=== PATIENT | female | born 1955 ===

== ENCOUNTER 2017-07-03 13:59 | Emergency (ER) | payer OTHER ==
[2017-07-03 14:00] VITALS: BMI 29.0
[2017-07-03 14:19] VITALS: RESP 20
[2017-07-03 15:35] VITALS: BP 130/64; PULSE 82; TEMP 98.6; O2SAT 98
--- NOTE | 2017-07-03 17:00 | C.PDOC ---
History Of Present Illness The patient is a 62yo female, presents to the ED for evaluation of sinus congestion and rash for the past 8 days. Patient reports rash was vesicular but has now dried. Patient denies any fever, vomiting. Patient states she has not visited her PCP for her symptoms. She offers no other medical complaints. Time Seen by Provider: 07/03/17 14:20 Chief Complaint (Nursing): Cough, Cold, Congestion History Per: Patient History/Exam Limitations: no limitations Onset/Duration Of Symptoms: Days Current Symptoms Are (Timing): Still Present Past Medical History Reviewed: Historical Data, Nursing Documentation, Vital Signs Vital Signs: Last Vital Signs Temp 98.6 F 07/03/17 15:34 Pulse 82 07/03/17 15:34 Resp 20 07/03/17 15:34 BP 130/64 07/03/17 15:34 Pulse Ox 98 07/03/17 17:04 - Medical History PMH: Arthritis (LEGS), Colonic Polyps (ADENOMATOUS AND HYPERPLASTIC), HTN, Hyperlipidemia Denies: Fractures, Chronic Kidney Disease, TIA Surgical History: Denies: Endoscopy Family History: States: Unknown Family Hx, Hypertension - Social History Hx Tobacco Use: No Hx Alcohol Use: No Hx Substance Use: No - Immunization History Hx Tetanus Toxoid Vaccination: No Hx Influenza Vaccination: No Hx Pneumococcal Vaccination: No Review Of Systems Constitutional: Negative for: Fever, Chills ENT: Positive for: Nose Congestion Gastrointestinal: Negative for: Nausea, Vomiting Skin: Positive for: Rash Physical Exam - Physical Exam Appears: Non-toxic, No Acute Distress Skin: Rash (dry, sporadic papules noted on T7 dermatome.) Eye(s): bilateral: Normal Inspection Nose: Other (mild sinus tenderness noted) Neck: Normal ROM Cardiovascular: Rhythm Regular Respiratory: Normal Breath Sounds, No Wheezing ED Course And Treatment O2 Sat by Pulse Oximetry: 98 (RA) Pulse Ox Interpretation: Normal Medical Decision Making Medical Decision Making: Impression: 62yo female w/ rash and sinus congestion Plan: -- Motrin 600 mg PO Patient to be discharged home w/ Zithromax and Motrin. Disposition - Disposition Referrals: [facility] [Outside] [facility] [Outside] Disposition: HOME/ ROUTINE Disposition Time: 15:10 Condition: GOOD Additional Instructions: Thank you for letting us take care of you today. Your provider was Dr. Mccartney. You were treated for a sinus infection and shingles. The emergency medical care you received today was directed at your acute symptoms. If you were prescribed any medication, please fill it and take as directed. It may take several days for your symptoms to resolve. Return to the Emergency Department if your symptoms worsen, do not improve, or if you have any other problems. Please contact your doctor or call one of the physicians/clinics you have been referred to that are listed on the Patient Visit Information form that is included in your discharge packet. Bring any paperwork you were given at discharge with you along with any medications you are taking to your follow up visit. Our treatment cannot replace ongoing medical care by a primary care provider (PCP) outside of the emergency department. Thank you for allowing the [facility] team to be part of your care today. Follow up in the clinic in 2-3 days for re-evaluation and further management. Prescriptions: Azithromycin [Zithromax] 250 mg PO DAILY #6 tab Ibuprofen [Motrin] 600 mg PO Q6 PRN #20 tab PRN Reason: Pain, Moderate (4-7) Instructions: Shingles (ED), Upper Respiratory Infection (ED) - Clinical Impression Clinical Impression: Viral disease, Shingles - Scribe Statement The provider has reviewed the documentation as recorded by the Ritaibsorin Manrique All medical record entries made by the Anthony were at my direction and personally dictated by me. I have reviewed the chart and agree that the record accurately reflects my personal performance of the history, physical exam, medical decision making, and the department course for this patient. I have also personally directed, reviewed, and agree with the discharge instructions and disposition.
== END 2017-07-03 15:35 | disposition home or self-care (01) ==
LOC: C.ER 13:59
DX: B34.9 Viral infection, unspecified (principal); B02.9 Zoster without complications

== ENCOUNTER 2017-08-30 12:59 | Emergency (ER) | payer OTHER ==
[2017-08-30 13:00] VITALS: BMI 29.0
[2017-08-30 13:22] VITALS: RESP 20; TEMP 98.5; O2SAT 97
[2017-08-30] MEDS ORDERED: Aspirin 325 mg EC Tablets PO STA (13:33)
--- NOTE | 2017-08-30 13:36 | C.PDOC ---
History Of Present Illness 62 y/o female presents to ED with c/o mid-sternal chest pain for 2 days. Patient describes pain as constant, not changing with exertion or change of position. Denies cough, SOB, diaphoresis, nausea, vomiting, or other associated symptoms. Patient reports chronic nasal congestion with a history of post nasal drip, which she states is unchanged. Time Seen by Provider: 08/30/17 13:28 Chief Complaint (Nursing): Chest Pain History Per: Patient History/Exam Limitations: no limitations Onset/Duration Of Symptoms: Days Current Symptoms Are (Timing): Still Present Associated Symptoms: denies: Dyspnea, Diaphoresis Recent travel outside of the [place]: No Past Medical History Reviewed: Historical Data, Nursing Documentation, Vital Signs Vital Signs: Last Vital Signs Temp 98.5 F 08/30/17 13:19 Pulse 60 08/30/17 13:19 Resp 20 08/30/17 13:19 BP 139/72 08/30/17 13:19 Pulse Ox 97 08/30/17 14:30 - Medical History PMH: Arthritis (LEGS), Bronchitis, Colonic Polyps (ADENOMATOUS AND HYPERPLASTIC) , HTN, Hyperlipidemia Family History: States: Unknown Family Hx, Hypertension - Social History Hx Tobacco Use: No Hx Alcohol Use: No Hx Substance Use: No - Immunization History Hx Tetanus Toxoid Vaccination: No Hx Influenza Vaccination: No Hx Pneumococcal Vaccination: No Review Of Systems Except As Marked, All Systems Reviewed And Found Negative. Constitutional: Negative for: Fever, Chills Cardiovascular: Positive for: Chest Pain. Negative for: Palpitations Respiratory: Negative for: Cough, Shortness of Breath, Wheezing Gastrointestinal: Negative for: Nausea, Vomiting, Abdominal Pain Skin: Negative for: Rash Physical Exam - Physical Exam Appears: Non-toxic, No Acute Distress, Other (comfortable) Skin: Normal Color, Warm, Dry Head: Atraumatic, Normacephalic Oral Mucosa: Moist Chest: Symmetrical Cardiovascular: Rhythm Regular Respiratory: Normal Breath Sounds, No Accessory Muscle Use, No Rales, No Rhonchi , No Wheezing Gastrointestinal/Abdominal: Soft, No Tenderness Back: Normal Inspection Extremity: Normal ROM, Capillary Refill (< 2 sec.) Neurological/Psych: Oriented x3, Normal Speech, Normal Cognition ED Course And Treatment - Laboratory Results Result Diagrams: 08/30/17 13:43 08/30/17 13:43 Lab Interpretation: Normal ECG: Interpreted By Me ( ) ECG Rhythm: Sinus Rhythm ECG Interpretation: No Acute Changes O2 Sat by Pulse Oximetry: 97 (RA) Pulse Ox Interpretation: Normal - Radiology CXR: Interpreted by Me CXR Interpretation: Yes: No Acute Disease Progress Note: EKG, bloodwork, aspirin. Reevaluation Time: 15:15 Reassessment Condition: Improved (Patient states that she feels better but is still having nasal congestion.) Disposition Counseled Patient/Family Regarding: Studies Performed, Diagnosis, Need For Followup, Rx Given - Disposition Referrals: [facility] [Outside] Disposition: HOME/ ROUTINE Disposition Time: 15:16 Condition: STABLE Prescriptions: Fluticasone Nasal [Flonase] 1 spr NS BID #1 spr Instructions: Noncardiac Chest Pain (ED) Forms: [employer] (Ugandan) - Clinical Impression Clinical Impression: Non-cardiac chest pain, Nasal congestion - Scribe Statement The provider has reviewed the documentation as recorded by the Scribe SM All medical record entries made by the Scribe were at my direction and personally dictated by me. I have reviewed the chart and agree that the record accurately reflects my personal performance of the history, physical exam, medical decision making, and the department course for this patient. I have also personally directed, reviewed, and agree with the discharge instructions and disposition.
[2017-08-30 13:48] LABS: BASO # 0.1 K/uL (0.0-0.2); BASO % 0.9 % (0.0-2.0); EOS # 0.1 K/uL (0.0-0.7); EOS % 0.8 % (0.0-4.0); HEMATOCRIT 40.6 % (34.0-47.0); LYMPH # 2.2 K/uL (1.0-4.3); LYMPH % 30.1 % (20.0-40.0); MEAN CELL VOLUME 88.4 fL (81.0-99.0); MEAN CORPUSCULAR HEMOGLOBIN 30.4 pg (27.0-31.0); MEAN CORPUSCULAR HGB CONC 34.4 g/dL (33.0-37.0); MEAN PLATELET VOLUME 8.6 fL (7.2-11.7); MONO # 0.6 K/uL (0.0-0.8); MONO % 7.9 % (0.0-10.0); RED CELL DISTRIBUTION WIDTH 13.2 % (11.5-14.5); WHITE BLOOD COUNT 7.3 K/uL (4.8-10.8)
[2017-08-30 14:21] LABS: ALB/GLOB RATIO 1.4 (1.0-2.1); ALKALINE PHOSPHATASE 101 U/L (38-126); ALT/SGPT 54 U/L (9-52); AST/SGOT 35 U/L (14-36); BILIRUBIN,TOTAL 0.5 mg/dL (0.2-1.3); BLOOD UREA NITROGEN 19 mg/dL (7-17); CALCIUM 8.7 mg/dl (8.6-10.4); CARBON DIOXIDE 28 mmol/L (22-30); CHLORIDE 104 mmol/L (98-107); GFR AFRICAN-AMERICAN > 60; GLUCOSE,RANDOM 123 mg/dL (65-105); POTASSIUM 3.6 mmol/L (3.6-5.2); SODIUM 140 mmol/L (132-148); TOTAL PROTEIN 7.2 g/dL (6.3-8.3)
[2017-08-30 15:15] VITALS: BP 155/85; PULSE 54
--- NOTE | 2017-08-30 15:46 | RAD ---
HISTORY: chest pain COMPARISON: Chest radiographs 01/31/2017. TECHNIQUE: Chest PA and lateral FINDINGS: LUNGS: No active pulmonary disease. PLEURA: No significant pleural effusion identified. No pneumothorax apparent. CARDIOVASCULAR: Normal. OSSEOUS STRUCTURES: No significant abnormalities. VISUALIZED UPPER ABDOMEN: Normal. OTHER FINDINGS: None. IMPRESSION: No interval acute cardiopulmonary disease appreciated.
== END 2017-08-30 15:22 | disposition home or self-care (01) ==
LOC: C.ER 12:59
DX: R07.89 Other chest pain (principal); R09.81 Nasal congestion

== ENCOUNTER 2017-09-13 16:40 | Emergency (ER) | payer OTHER ==
[2017-09-13 16:41] VITALS: BMI 29.0
[2017-09-13 17:27] VITALS: TEMP 98.8; O2SAT 97
--- NOTE | 2017-09-13 18:27 | C.PDOC ---
History Of Present Illness 62 year old female presents to the ED with c/o insomnia for 3 days. Patient has no other associated symptoms at this time. She is pending PMD appointment on . History obtained via senior consumer insights consultant. VIA TRANS CO INSOMNIA X 3 DAYS. NO OTHER ASSOC SX. PENDING PMD APPT 10/10. EXAM NEG MDM PT ADVISED THIS PROVIDER DOES NOT WRITE PRESCRIPTIONS FOR INSOMNIA. FU PMD SCHEDULED. Chief Complaint (Nursing): Medical Clearance History Per: Patient History/Exam Limitations: other (senior consumer insights consultant used ) Onset/Duration Of Symptoms: Days Current Symptoms Are (Timing): Still Present Additional History Per: Patient Past Medical History Reviewed: Historical Data, Nursing Documentation, Vital Signs Vital Signs: Last Vital Signs Temp 98.8 F 09/13/17 17:24 Pulse 70 09/13/17 18:33 Resp 16 09/13/17 18:33 BP 139/84 09/13/17 18:33 Pulse Ox 97 09/13/17 18:27 - Medical History PMH: Arthritis (LEGS), Bronchitis, Colonic Polyps (ADENOMATOUS AND HYPERPLASTIC) , HTN, Hyperlipidemia Surgical History: No Surg Hx Family History: States: Hypertension - Social History Hx Tobacco Use: No Hx Alcohol Use: No Hx Substance Use: No - Immunization History Hx Tetanus Toxoid Vaccination: No Hx Influenza Vaccination: No Hx Pneumococcal Vaccination: No Review Of Systems Constitutional: Positive for: Other (insomnia ) Physical Exam - Physical Exam Appears: Non-toxic, No Acute Distress Skin: Normal Color, Warm, Dry Neurological/Psych: Oriented x3, Normal Speech, Normal Cognition Gait: Steady ED Course And Treatment O2 Sat by Pulse Oximetry: 97 (on RA) Pulse Ox Interpretation: Normal Medical Decision Making Medical Decision Making: PT ADVISED THIS PROVIDER DOES NOT WRITE PRESCRIPTIONS FOR INSOMNIA. FU PMD SCHEDULED. Disposition Counseled Patient/Family Regarding: Diagnosis, Need For Followup - Disposition Referrals: YOUR,PMD [Other] Disposition: HOME/ ROUTINE Disposition Time: 18:25 Condition: GOOD Instructions: Insomnia (ED) Forms: [employer] (Comoran) Print Language: PUERTO RICAN - Clinical Impression Clinical Impression: Insomnia - Scribe Statement The provider has reviewed the documentation as recorded by the Scribe (Darleen Swift) Provider Attestation: All medical record entries made by the Scribe were at my direction and personally dictated by me. I have reviewed the chart and agree that the record accurately reflects my personal performance of the history, physical exam, medical decision making, and the department course for this patient. I have also personally directed, reviewed, and agree with the discharge instructions and disposition.
[2017-09-13 18:33] VITALS: BP 139/84; PULSE 70; RESP 16
== END 2017-09-13 18:33 | disposition home or self-care (01) ==
LOC: C.ER 16:40
DX: G47.00 Insomnia, unspecified (principal)

== ENCOUNTER 2017-11-15 09:34 | Emergency (ER) | payer OTHER ==
[2017-11-15 09:34] VITALS: BMI 29.0
[2017-11-15 09:58] VITALS: RESP 18; O2SAT 95
[2017-11-15 12:46] VITALS: BP 138/75; PULSE 69; TEMP 98.1
--- NOTE | 2017-11-15 12:54 | C.PDOC ---
History Of Present Illness Pt c/o right buttock area pain after falling 2 weeks ago. Time Seen by Provider: 11/15/17 09:59 Chief Complaint (Nursing): Lower Extremity Problem/Injury History Per: Patient Onset/Duration Of Symptoms: Days (about 2 weeks) Current Symptoms Are (Timing): Still Present Severity: Moderate Additional History Per: Prior Records - Hip Description Of Injury: Fell Past Medical History Reviewed: Historical Data, Nursing Documentation, Vital Signs Vital Signs: Last Vital Signs Temp 98.1 F 11/15/17 12:45 Pulse 69 11/15/17 12:45 Resp 18 11/15/17 12:45 BP 138/75 11/15/17 12:45 Pulse Ox 95 11/15/17 12:45 - Medical History PMH: Arthritis (LEGS), Bronchitis, Colonic Polyps (ADENOMATOUS AND HYPERPLASTIC) , HTN, Hyperlipidemia Surgical History: Family History: States: Unknown Family Hx, Hypertension - Social History Hx Tobacco Use: No Hx Alcohol Use: No Hx Substance Use: No - Immunization History Hx Tetanus Toxoid Vaccination: No Hx Influenza Vaccination: No Hx Pneumococcal Vaccination: No Review Of Systems Except As Marked, All Systems Reviewed And Found Negative. Constitutional: Negative for: Fever Cardiovascular: Negative for: Chest Pain Respiratory: Negative for: Shortness of Breath Gastrointestinal: Negative for: Vomiting, Abdominal Pain Genitourinary: Negative for: Dysuria, Incontinence Musculoskeletal: Positive for: Back Pain (right lower). Negative for: Neck Pain Skin: Negative for: Rash Neurological: Negative for: Weakness, Numbness Physical Exam - Physical Exam Appears: Non-toxic, No Acute Distress Skin: Normal Color, Warm, Dry, No Rash Head: Atraumatic, Normacephalic Eye(s): bilateral: Normal Inspection, PERRL, EOMI Neck: Normal ROM, No Midline Cervical Tenderness, No Step Off Deformity, Supple Cardiovascular: Rhythm Regular Respiratory: Normal Breath Sounds, No Accessory Muscle Use Gastrointestinal/Abdominal: Soft, No Tenderness Back: No CVA Tenderness, No Vertebral Tenderness, Paraspinal Tenderness (right lower) Extremity: Normal ROM, No Pedal Edema, No Calf Tenderness, No Deformity, No Swelling Extremity: Bilateral: Normal Color And Temperature Pulses: Right Dorsalis Pedis: Normal Neurological/Psych: Oriented x3, Normal Motor, Normal Sensation ED Course And Treatment O2 Sat by Pulse Oximetry: 95 Pulse Ox Interpretation: Normal - Other Rad LS spine x-rays X-Ray: Interpreted by Me, Viewed By Me Interpretation: DJD. No acute fx. Right hip x-rays X-Ray: Interpreted by Me, Viewed By Me Interpretation: No acute fx or dislocation. Reassessment Condition: Improved Disposition Counseled Patient/Family Regarding: Studies Performed, Diagnosis, Need For Followup, Rx Given - Disposition Referrals: [facility] [Outside] Disposition: HOME/ ROUTINE Disposition Time: 12:56 Condition: IMPROVED Additional Instructions: Follow up with your doctor or in the clinic within 1-2 weeks for further evaluation and treatment. Return to the ER if you develop redness, swelling, weakness, numbness, worsening of symptoms or if you have any other concerns. Prescriptions: Naproxen 375 mg PO BID PRN #20 tablet PRN Reason: Pain, Moderate (4-7) Instructions: Hip Pain (DC) Forms: Gen Discharge Inst Yi, General Discharge Instructions Print Language: FRENCH - Clinical Impression Clinical Impression: Right buttock pain
--- NOTE | 2017-11-15 14:10 | RAD ---
PROCEDURE: Radiographs of the Lumbar Spine. HISTORY: Right lower pain s/p fall 2 weeks ago COMPARISON: None available. FINDINGS: BONES: Alignment appears satisfactory. Osseous demineralization. Loss of vertebral body height at the L1 vertebral level possibly mild wedge fracture deformity, age indeterminate . No acute displaced fracture or subluxation identified. DISC SPACES: Unremarkable. OTHER FINDINGS: None. IMPRESSION: Loss of vertebral body height at the L1 vertebral level possibly mild wedge fracture deformity, age indeterminate .
--- NOTE | 2017-11-15 16:52 | RAD ---
Indication: Pain s/p fall 2 weeks ago Right hip with pelvis radiographs Comparison: None available Findings: No acute displaced fracture or dislocation identified. Sacroiliac joints appear intact. Mild constipation. Soft tissues appear unremarkable. No evidence of radiopaque foreign body. Impression: No acute displaced fracture or dislocation evident. If high clinical index of suspicion, suggest cross-sectional imaging for further evaluation. Otherwise, if symptoms persist or if there is continued clinical concern, x-ray follow-up in 7-10 days should be considered.
== END 2017-11-15 13:07 | disposition home or self-care (01) ==
LOC: C.ER 09:34
DX: M54.5 Low back pain (principal)
CPT/HCPCS: 72100; 73502; 96372; 99284; J1885

== ENCOUNTER 2018-05-21 15:17 | Emergency (ER) | payer OTHER ==
[2018-05-21 15:17] VITALS: BMI 29.0
[2018-05-21 15:26] VITALS: BP 147/77; PULSE 66; RESP 20; TEMP 99; O2SAT 98
--- NOTE | 2018-05-21 17:49 | C.PDOC ---
History Of Present Illness 63 y/o female presents to ED with c/o right thigh pain since earlier today. Patient states she did not take pain medication and denies trauma, leg numbness , back pain or any other complaints at this time. Time Seen by Provider: 05/21/18 15:31 Chief Complaint (Nursing): Lower Extremity Problem/Injury History Per: Patient History/Exam Limitations: no limitations Onset/Duration Of Symptoms: Hrs Current Symptoms Are (Timing): Still Present Past Medical History Reviewed: Historical Data, Nursing Documentation, Vital Signs Vital Signs: Last Vital Signs Temp 99 F 05/21/18 15:28 Pulse 66 05/21/18 15:28 Resp 20 05/21/18 15:28 BP 147/77 05/21/18 15:28 Pulse Ox 98 05/21/18 17:49 - Medical History PMH: Arthritis (LEGS), Bronchitis, Colonic Polyps (ADENOMATOUS AND HYPERPLASTIC) , HTN, Hyperlipidemia Surgical History: No Surg Hx Family History: States: Hypertension - Social History Hx Tobacco Use: No Hx Alcohol Use: No Hx Substance Use: No - Immunization History Hx Tetanus Toxoid Vaccination: No Hx Influenza Vaccination: No Hx Pneumococcal Vaccination: No Review Of Systems Musculoskeletal: Positive for: Leg Pain Skin: Negative for: Rash Neurological: Negative for: Weakness, Numbness Physical Exam - Physical Exam Appears: Non-toxic, No Acute Distress Skin: Warm, Dry, No Rash Head: Atraumatic, Normacephalic Eye(s): bilateral: Normal Inspection Oral Mucosa: Moist Extremity: No Tenderness, No Pedal Edema, Capillary Refill (<2 seconds), No Deformity Extremity: Bilateral: Normal ROM Neurological/Psych: Oriented x3, Normal Motor, Normal Sensation ED Course And Treatment O2 Sat by Pulse Oximetry: 98 (RA) Pulse Ox Interpretation: Normal Disposition - Disposition Referrals: [facility] [Outside] [facility] [Outside] Disposition: HOME/ ROUTINE Disposition Time: 15:55 Condition: GOOD Additional Instructions: JESSICA BETANCUR, thank you for letting us take care of you today. Your provider was Edwin Mccartney DO and you were treated for LEG PAIN. The emergency medical care you received today was directed at your acute symptoms. If you were prescribed any medication, please fill it and take as directed. It may take several days for your symptoms to resolve. Return to the Emergency Department if your symptoms worsen, do not improve, or if you have any other problems. Please contact your doctor or call one of the physicians/clinics you have been referred to that are listed on the Patient Visit Information form that is included in your discharge packet. Bring any paperwork you were given at discharge with you along with any medications you are taking to your follow up visit. Our treatment cannot replace ongoing medical care by a primary care provider outside of the emergency department. [facility] you [facility] to be part of your care today. Follow up with the clinic in 3-5 days for re-evaluation and further management. Prescriptions: Cyclobenzaprine [Flexeril] 5 mg PO Q6 PRN #20 tab PRN Reason: Muscle Spasm Ibuprofen [Motrin] 600 mg PO Q6 PRN #20 tab PRN Reason: Pain, Moderate (4-7) Instructions: Muscle Strain (DC) Forms: [employer] (Swedish) - Clinical Impression Clinical Impression: Leg pain - Scribe Statement The provider has reviewed the documentation as recorded by the Ritaibsorin Quintana All medical record entries made by the Ritaibsorin were at my direction and personally dictated by me. I have reviewed the chart and agree that the record accurately reflects my personal performance of the history, physical exam, medical decision making, and the department course for this patient. I have also personally directed, reviewed, and agree with the discharge instructions and disposition.
== END 2018-05-21 16:08 | disposition home or self-care (01) ==
LOC: C.ER 15:17
DX: M79.651 Pain in right thigh (principal)

== ENCOUNTER 2018-12-06 09:30 | Emergency (ER) | payer OTHER | END 2018-12-06 10:39 | disposition home or self-care (01) | LOC: C.ER 09:30 ==